=== PATIENT | female | born 1950 | race African-American/Black ===

== ENCOUNTER → 2020-01-24 | Outpatient (CLI) | payer OTHER ==
--- NOTE | 2020-01-24 16:43 | KCIC ---
EXAMINATION: Magnetic resonance imaging (MRI) of the brain and brainstem without contrast 01/24/2020 3:47 PM HISTORY: Memory loss, abnormal gait TECHNIQUE: Multiplanar multi-weighted MRI of the brain and brainstem was performed without intravenous contrast using the general brain protocol. COMPARISON: None available. FINDINGS: The scalp and calvarium are normal. The superior sagittal sinus demonstrates normal venous flow. The corpus callosum is normal in shape and signal intensity. The posterior fossa is unremarkable. The pituitary and sella are normal. The brainstem and craniocervical junction are unremarkable. 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 Diffusion weighted images reveal no hyperintensities to suggest acute cerebral infarction. The susceptibility weighted sequences reveal no evidence of acute or chronic hemorrhage. Prominence of the ventricles, sulci and basal cisterns compatible with moderate generalized cerebral volume loss. There are T2/FLAIR signal hyperintense foci in the periventricular and subcortical white matter most suggestive of mild chronic small vessel ischemic changes. The paranasal sinuses are normal. The visualized portions of the mastoids are unremarkable. The orbits appear normal. Normal flow voids are demonstrated in the carotid arteries and basilar artery. IMPRESSION: 1. No evidence for acute or subacute ischemia. 2. Moderate generalized cerebral volume loss. 3. There are T2/FLAIR signal hyperintense foci in the periventricular and subcortical white matter most suggestive of mild chronic small vessel ischemic changes. 4. Cavum septum veli interpositi. Electronically signed by: Donya Townsend MD (01/24/2020 4:40 PM) [facility]
--- NOTE | 2020-01-27 16:21 | KCIC ---
Bilateral digital screening mammograms: Reason for examination: Routine screening. Comparison is made to previous study dated 07/31/2017. Interpretation was made with the benefit of CAD. The skin and nipples show no abnormalities. No abnormal axillary lymph nodes are seen. The breast parenchyma shows scattered fibroglandular density. (Breast density: Category B.) There continued be small nodular parenchymal 9:00 B and 10:00 B positions of the right breast which are stable. There are no new dominant masses, suspicious calcifications or architectural distortions. Impression: No evidence of malignancy. Recommend routine screening. BI-RADS Category 2: Benign. "Our facility is accredited by the [employer] Mammography [employer]." This patient's information has been entered into a reminder system for the patient to be notified with the results of her examination and a target date for the next mammogram. Electronically signed by: Melissa Gallagher MD (01/27/2020 4:18 PM) [id number]
== END ==
LOC: KCIC MAMMO 15:07
PROVIDERS: ATTEND Family Medicine
DX: Z12.31 Encounter for screening mammogram for malignant neoplasm of breast (principal); N64.89 Other specified disorders of breast; R41.3 Other amnesia; R26.9 Unspecified abnormalities of gait and mobility
CPT/HCPCS: 70551; 77067

== ENCOUNTER → 2020-02-28 | Outpatient (CLI) | payer OTHER ==
[~2020-02-28] MED LIST: ALEN70TA60 PO; ASPI-630 PO; ATOR20TA58 PO; IOHEXOL 240 MG/ML 50ML VIAL. PO ONE; IOHEXOL 300 MG/ML 100ML VIAL. IV ONE
--- NOTE | 2020-02-28 15:18 | KCIC ---
EXAM: CT Abdomen and Pelvis with IV contrast INDICATION: Reason: Weight loss, diarrhea, elevated hemoglobin. / Spl. Instructions: 89mL Omni 300 / History: Wt. loss of 30 pounds. TECHNIQUE: Multi-detector row CT images were acquired from the lung bases through the abdomen and pelvis with the use of IV contrast. Sagittal and coronal images were acquired from the transaxial data. All CT scans performed at this facility utilize dose optimization techniques as appropriate to the exam, including the following: Automated exposure control and adjustment of the mA and/or KV according to patient size (this includes techniques or standardized protocols for targeted exams where dose is indication/reason for exam). IV CONTRAST: Administered ORAL CONTRAST: Administered. COMPARISON: None FINDINGS: LOWER CHEST: Unremarkable LIVER: Multiple oval low-density lesions in the liver are incompletely characterized on single phase CT imaging. Largest in the right hepatic lobe measures 1.3 cm BILIARY SYSTEM: Mild gallbladder distention with multiple dense internal septations, suggesting either multiple juxtaposed partially calcified stones or intraluminal mass. Ultrasound could help further assess. Bile ducts are not dilated. PANCREAS: Unremarkable SPLEEN: Unremarkable ADRENALS: Normal right adrenal gland. Left adrenal gland shows mild bulbous fullness most notable in the lateral limb to 1.5 x 1.2 cm (image 22 of series 2. This most likely represents a benign adenoma KIDNEYS & URETERS: Both kidneys show numerous cortical cysts of varying sizes, largest in the right kidney measuring 7 cm at the midpole, largest on the left measuring 5 cm at the superior pole. These do not require additional imaging follow-up. BLADDER: Unremarkable REPRODUCTIVE ORGANS: Hysterectomy. No adnexal mass or fluid collection. Ovaries not well seen. GASTROINTESTINAL: The stomach, small bowel, and colon are unremarkable. Appendix is not well seen but there are no findings of acute appendicitis. MESENTERY/PERITONEUM/RETROPERITONEUM: Unremarkable VASCULAR: Abdominal aorta shows a fusiform infrarenal aneurysm measuring 3.1 cm AP by 3.0 cm transverse that shows near circumferential dense but eccentric soft tissue density. No displacement of the intimal calcifications is appreciated. Mean Hounsfield units of the soft tissue density in the aneurysmal wall is 49 HU. An intramural hematoma can appear similar. No periaortic soft tissue stranding to suggest aneurysmal leak or rupture. LYMPH NODES: No adenopathy OSSEOUS & SOFT TISSUES: Unremarkable IMPRESSION: 1. Mildly distended gallbladder containing multiple dense (or enhancing) internal septations. This could represent a multiseptate gallbladder. Recommend further evaluation with ultrasound. 2. Multiple hypodense lesions in the liver, statistically likely to be cysts but not satisfactorily characterized on single phase abdomen CT. These could be assessed further by ultrasound concurrent with the gallbladder. 3. Infrarenal abdominal aortic aneurysm with a dense aneurysmal wall. Cannot exclude an intramural hematoma but there is no evidence of aneurysm leak or rupture. Recommend clinical correlation and follow-up. 4. There is a 1 cm left adrenal nodule that is recommended for biochemical correlation and adrenal mass protocol CT follow-up in 6 months. Report telephoned to the ordering provider's office (Dr. Geo Ibarra) at 3:10 PM where Krissy took the report on his behalf on February 28, 2020. Electronically signed by: Anuj Arce MD (02/28/2020 3:15 PM) [id number]
== END ==
LOC: KCIC CT 09:18
PROVIDERS: ATTEND Internal Medicine Gastroenterology
DX: K82.8 Other specified diseases of gallbladder (principal); R63.4 Abnormal weight loss; R19.7 Diarrhea, unspecified; I71.4 Abdominal aortic aneurysm, without rupture; K76.89 Other specified diseases of liver
CPT/HCPCS: 74177; 82565; Q9966; Q9967

== ENCOUNTER → 2020-10-26 | Outpatient (CLI) | payer OTHER ==
[~2020-10-26] MED LIST changes: -ALEN70TA60 PO; +ALEN70TA71 PO; -IOHEXOL 240 MG/ML 50ML VIAL. PO ONE; -IOHEXOL 300 MG/ML 100ML VIAL. IV ONE
--- NOTE | 2020-10-26 13:50 | RAD ---
EXAM: Head CT without contrast. HISTORY: Fall. TECHNIQUE: Computed tomographic images of the head were obtained without contrast. *One or more of the following individualized dose reduction techniques were utilized for this examina tion: 1. Automated exposure control. 2. Adjustment of the mA and/or kV according to patient size. 3. Use of iterative reconstruction technique. COMPARISON: Brain MRI dated 01/24/2020. FINDINGS: There is no acute or subacute extra-axial or intraparenchymal hemorrhage. There is no mass effect or midline shift. There is no hydrocephalus. There are areas of decreased attenuation within the cerebral white matter, nonspecific and likely rel ated to chronic small vessel disease. There is cerebral volume loss. There is a cavum septum pellucid um et vergae. The visualized portions of the orbits, paranasal sinuses and mastoid air cells are unremarkable. No s uspicious calvarial lesion is seen. IMPRESSION: 1. No acute intracranial finding. 2. Bilateral cerebral white matter changes, likely due to chronic small vessel disease. 3. Cerebral volume loss. Electronically signed by: Bernie Santoyo MD (10/26/2020 1:47 PM) [id number]
== END ==
LOC: CT 13:11
PROVIDERS: ATTEND Family Medicine
DX: R26.9 Unspecified abnormalities of gait and mobility (principal); W19.XXXA Unspecified fall, initial encounter
CPT/HCPCS: 70450